=== PATIENT | male | born 1965 | race Two or more races ===

== ENCOUNTER 2019-09-14 06:58 | Emergency (ER) | payer BC ==
[~2019-09-14] VITALS: Ht 182.9 cm; Wt 99.8 kg
[2019-09-14 07:09] VITALS: BP 136/91
[2019-09-14] MEDS ORDERED: Cyclobenzaprine 10mg Tab ORAL ONE (07:15)
--- NOTE | 2019-09-14 07:15 | NUR ---
ED Nurse Note: Patient walked into ED from work, patient reports he leaned forward to "unlock something from home and hurt his lower back" this morning. patient is alert awake x4 ambulatory, breathing unlabored and even, speaking in full sentences.
[2019-09-14] MEDS ORDERED: Ketorolac 60mg Inj IM ONE (07:30)
--- NOTE | 2019-09-14 07:32 | NUR ---
ED Nurse Note: patient is provided with hospital gown but declined the gown. patient is taken for the xray.
--- NOTE | 2019-09-14 07:33 | Emergency Room Report ---
History of Present Illness General Chief Complaint: Lower Back Pain or Injury Source: Patient Present Illness HPI 53-year-old male with no medical problems, no surgical history, no history of drug or tobacco use, reports low back pain, sharp, nonradiating, moderate to severe intensity, worse when he is in the seated position, improves with walking around and standing upright, that started when he leaned down to unlock his gate at home. Patient denies any bowel bladder incontinence, any numbness, tingling, weakness, falls, recent weight loss, fevers chills, any other complaints, and reports his had pain like this but it was many years ago. He has not taken any medications for his symptoms. Allergies: Coded Allergies: No Known Allergies (Unverified , 09/14/19) Patient History Past Medical History: see triage record Reviewed Nursing Documentation: PMH: Agreed; PSxH: Agreed Nursing Documentation-PMH Past Medical History: No Stated History Review of Systems All Other Systems: negative except mentioned in HPI Physical Exam Vital Signs Date Time Temp Pulse Resp B/P (MAP) Pulse Ox O2 Delivery O2 Flow Rate FiO2 09/14/19 07:09 98.8 100 22 136/91 (106) 98 Room Air Sp02 EP Interpretation: reviewed, normal General Appearance: no apparent distress, alert, non-toxic Head: normocephalic Eyes: bilateral eye normal inspection, bilateral eye PERRL, bilateral eye EOMI ENT: normal ENT inspection, hearing grossly normal, normal pharynx, no angioedema, normal voice, moist mucus membranes Neck: normal inspection, full range of motion, supple, supple/symm/no masses Respiratory: chest non-tender, lungs clear, normal breath sounds, chest symmetrical, palpation of chest normal Cardiovascular #1: normal peripheral pulses, regular rate, rhythm Cardiovascular #2: 2+ radial (R), 2+ radial (L), 2+ dorsalis pedis (R), 2+ dorsalis pedis (L) Gastrointestinal: normal inspection, non tender, soft, no mass, no guarding, no rebound Rectal: deferred Genitourinary: normal inspection, no CVA tenderness Musculoskeletal: normal inspection, back normal, digits/nails normal, gait/ station normal, normal range of motion, non-tender, no calf tenderness Neurologic: alert, responsive, coil placer III-XII nml as tested, motor strength/tone normal, DTRs symmetric, SLR negative, sensory intact, normal gait, speech normal Psychiatric: judgement/insight normal, memory normal, mood/affect normal Reflexes: 2+ knee (R), 2+ knee (L) Lymphatic: no adenopathy Medical Decision Making Diagnostic Impression: Primary Impression: Low back pain ER Course Patient with normal examination, including neuro exam, patellar tendon reflexes , refuses muscle relaxants here because he wants to be able to drive home. Also refused a lumbar spine x-ray because he is not sure that is necessary, and he says he has an appointment with his doctor on the 12th of this month, which is 6 days from now. Patient reports he would like a prescription for muscle relaxants that he can fill if necessary, and wants to have today, , and Thursday off of work. I explained to him that his pain may last beyond that, but he just wants to have the rest of the week off, not 2 weeks. I offered today and tomorrow off, and he complained about not getting the manger of the entire week off. Also offered to write a work note that states he should have light duty with no lifting, and that he should be allowed to stand and move around regularly if sitting for prolonged periods aggravates his pain. Patient seemed adamant that he wanted today, tom, and Thursday off. Refused any other work- up or therapy other than receiving a Toradol shot. Last Vital Signs Date Time Temp Pulse Resp B/P (MAP) Pulse Ox O2 Delivery O2 Flow Rate FiO2 09/14/19 07:09 98.8 100 22 136/91 (106) 98 Room Air Disposition: HOME, SELF-CARE Condition: Stable Scripts No Active Prescriptions or Reported Meds ARIANNA SIMMONS M.D Sep 14, 2019 07:33
--- NOTE | 2019-09-14 07:40 | NUR ---
ED Nurse Note: patient refused IM toradol. Dr. Willis notified.
[2019-09-14] MEDS ORDERED: IBUPROFEN600 MG ORAL (07:44)
[2019-09-14] MEDS ORDERED: CYCLOBENZAPRINE10 MG ORAL (07:44)
[2019-09-14 07:58] VITALS: BP 136/91
--- NOTE | 2019-09-14 07:58 | NUR ---
ER DISCHARGE NOTE: Patient is cleared to be discharged per ERMD DR SIMMONS, pt is aox4, on room air, with stable vital signs. pt was given dc and prescription instructions, pt was able to verbalize understanding, pt id band removed without complications. pt is able to ambulate with steady gait. pt took all belongings.
== END 2019-09-14 07:58 | disposition home or self-care (01) ==
LOC: EMR 07:40 → EEVIPCON 07:40 → EMR 07:58
DX: M54.5 Low back pain (principal)
CPT/HCPCS: 99282

== ENCOUNTER 2020-11-03 14:59 | Inpatient (IN) | payer BC ==
[2020-11-03] VITALS (8 sets, daily range): BP systolic 118–129; BP diastolic 75–83
[~2020-11-03] VITALS: Ht 182.9 cm; Wt 106.6 kg
[~2020-11-03 14:59] MED LIST: CYCLOBENZAPRINE10 MG ORAL; IBUPROFEN600 MG ORAL
--- NOTE | 2020-11-03 15:10 | Emergency Room Report ---
History of Present Illness General Chief Complaint: Upper Extremity Injury Source: Patient Present Illness HPI 55-year-old [id number] male sent by orthopedic surgeon Dr. Reeys for open right distal radius fracture. Patient states that he sustained the injury yesterday after falling from a 6 foot ladder while painting his house. He initially presented to [facility] who wanted to admit him for orthopedic surgery, however he came to [place] because his doctor was here. Patient has been n.p.o. since yesterday. He denies any head trauma, loss of consciousness, neck pain, back pain, chest pain, abdominal pain and states that he is primarily having pain at his right wrist. Does not have any axial skeleton pain or any prodromal symptoms of syncope. He is currently in a splint from the outside facility. He denies numbness, tingling, paresthesia, paralysis, or other complications. He is right-hand d ominant. 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 The patient's symptoms were gradual onset, severity was moderate, duration since 2 days. Quality: Aching Past medical history: Type 2 diabetes Past surgical history: Denies Smoking: Previous Alcohol use: Previous Drug use: Denies Review of systems: CONST: No fevers or chills, No night sweats PULMONARY: No productive cough, No shortness of breath CARDIAC: No chest pain, No palpitations GI: No vomiting, No diarrhea , No melena_or_BRBPR : No dysuria, No hematuria, No discharge NEURO: No new_focal_weakness_or_numbness, No confusion, No vision changes 14 point Review of Systems is otherwise negative except per HPI Physical Exam: GENERAL: Awake_alert_ nontoxic, no acute distress Spo2 97% on RA -normal EYES: Extraocular muscles are intact. Conjunctivae clear. Lids without swelling ENT: External nose and ear normal_in_appearance. Oropharynx clear. Head_atraumatic, Moist_oral_mucosa NECK: No JVD. No meningismus. No thyromegaly. Supple. Trachea midline RESP: Normal respiratory effort. Symmetric rise. No stridor. Clear_to_auscultation_No_rales_No_wheezes CARDIAC: Tachycardic and regular rhytm. No_significant pedal edema. ABDOMEN: Soft. Nondistended. Nontender_No_rebound_or_guarding. MSK: Normal muscle tone, without rigidity. Extremities without asymmetric deformity or swelling. Upper extremity exam: RIGHT UE Elbow: No swelling / effusion appreciated, no significant pain with passive range of motion Wrist: ++Open fx with volar displacement; Dorsal laceration Lateral epicondyle: no tenderness / swelling / ecchymoses Medial epicondyle: no tenderness / swelling / ecchymoses Radial pulse: 2+ Capillary refill: <3 seconds in all fingers All fingers: full range of motion without any tenderness / swelling / deformity / evidence of infection Scaphoid: no tenderness / swelling / ecchymoses, no pain with axial loading of the thumb Radian / Median / Ulnar nerves: all intact (finger opposition, finger adduction / abduction, thumb dorsiflexion) Sensation intact to light touch: in all fingers Strength 5/5 with: wrist dorsi / volar flexion, 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 No visible cyanosis or pallor NEUROLOGIC: Alert, oriented x3. Motor_and_sensation_grossly_intact. No truncal ataxia. Gait_normal Psych: Normal mood and affect, normal judgment and insight - COORDINATION OF CARE Case was discussed with: Patient , Patient's Physician Any labs and imaging that were ordered were interpreted as part of the medical decision making: I reviewed patient's medical records from [facility]. He brought his diagnostic imaging report which was a 3 view x-ray of the right hand. It showed a Frykman classification type VIII acute comminuted intra-articular distal radial and ulnar fracture. 8 mm posterior displacement of the distal radial fracture also present. Medical Decision Making/Plan: Differential diagnosis includes musculoskeletal pain, fracture, dislocation, compartment syndrome, arterial occlusion, nerve damage, among others. Patient presents here with known open distal radius and ulnar fracture with displacement. He is neuro intact. Denies prodromal symptoms or syncope, or long-lasting headache, vision changes, weakness, axial skeleton pain, or difficulty walking. He is currently immobilized in a splint from the outside hospital. Per orthopedic surgeon, Dr. Rios, will get repeat x-rays for the RUE. Dr Rios states to keep splint on to immobilize the extremity and not to remove it at this time. He will take the open fx to OR for washout and repair. Dr Rios is requesting pre-op labs, COVID check and admission for operative repair. ED intervention included Ancef, Tdap, and morphine for pain control. Patient also received Ancef 1 g yesterday at [facility]. Distally the patient has capillary refill <2 seconds and strong pulses. There is no pallor or pain out of proportion to exam. No evidence of arterial occlusion or injury. No evidence at this time of major ligamentous disruption. I spoke with Dr. Rios and Dr Rodriguez, and reviewed the patients presentation, workup, results, and treatment. They will admit the patient for further care and evaluation, and assume care of the patient at this time. 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 Results Rhythm Strip Time: 15:26 EP Interpretation: yes Rate: 100 Rhythm: NSR, no PVC's, no ectopy PA Scribe Text Right wrist X-ray: Views: 3 view(s) Comminuted intra-articular distal radius and ulnar fracture. Mild displacement. Soft tissue swelling. Indication: Pain Impression: Comminuted intra-articular distal radius and ulnar fracture. Mild displacement. Soft tissue swelling. The X-ray(s) were independently viewed and interpreted contemporaneously - Electronically signed by Jaja baxter DO Right hand X-ray: Views: 2 view(s) Comminuted intra-articular distal radius and ulnar fracture. Mild displacement. Soft tissue swelling. Indication: Pain Impression: Comminuted intra-articular distal radius and ulnar fracture. Mild displacement. Soft tissue swelling. The X-ray(s) were independently viewed and interpreted contemporaneously - Electronically signed by Jaja baxter DO Right forearm X-ray: Views: 2 view(s) Comminuted intra-articular distal radius and ulnar fracture. Mild displacement. Soft tissue swelling. Indication: Pain Impression: Comminuted intra-articular distal radius and ulnar fracture. Mild displacement. Soft tissue swelling. The X-ray(s) were independently viewed and interpreted contemporaneously - Electronically signed by Jaja baxter DO Reevaluation Time: 15:26 Last Vital Signs Date Time Temp Pulse Resp B/P (MAP) Pulse Ox O2 Delivery O2 Flow Rate FiO2 11/03/20 15:02 99.0 117 19 123/80 (94) 98 Room Air Status: improved Disposition: ADMITTED INPATIENT Admit Decision Time: 15:26 Condition: Stable Jaja Hamilton D.O. Nov 03, 2020 15:10
[2020-11-03] MEDS ORDERED: ceFAZolin 2gm/50ml Premix 50 ML IV SCH (15:15)
[2020-11-03] MEDS ORDERED: Morphine Sulfate 4mg/ml Inj (IV USE ONLY) IVP ONE ×2 (15:15→18:15)
[2020-11-03] MEDS: Tetanus/Diptheria/Pertussis IM ONE ×2 (15:17→15:43)
[2020-11-03] MEDS ORDERED: NARCAN4 MG NS (15:34)
[2020-11-03] MEDS ORDERED: NORCO 5-325 TA1 EAC1 ORAL (15:34)
[2020-11-03] MEDS ORDERED: CEPHALEXIN500 MG ORAL (15:34)
[2020-11-03] MEDS ORDERED: NAPROXEN500 M1 ORAL (15:34)
[2020-11-03 15:57] LABS: ANION GAP 10 mmol/L (5-15); BLOOD UREA NITROGEN 16 mg/dL (7-18); CALCIUM 8.5 MG/DL (8.5-10.1); CARBON DIOXIDE 24 MMOL/L (21-32); CHLORIDE 106 MMOL/L (98-107); CREATININE 0.9 MG/DL (0.55-1.30); POTASSIUM 3.8 MMOL/L (3.5-5.1); SODIUM 140 MMOL/L (136-145)
[2020-11-03 16:08] LABS: ALANINE AMINOTRANSFERASE 39 U/L (12-78); ALBUMIN 4.1 G/DL (3.4-5.0); ALBUMIN/GLOBULIN RATIO 1.2 (1.0-2.7); ALKALINE PHOSPHATASE 64 U/L (46-116); ASPARTATE AMINO TRANSFERASE 33 U/L (15-37); BILIRUBIN,TOTAL 1.2 MG/DL (0.2-1.0)
[2020-11-03 16:28] LABS: BASOPHILS % (AUTO) 0.9 % (0.0-2.0); EOSINOPHILS % (AUTO) 0.2 % (0.0-3.0); HEMATOCRIT 42.5 % (42.0-52.0); HEMOGLOBIN 15.2 G/DL (14.2-18.0); LYMPHOCYTES % (AUTO) 17.7 % (20.0-45.0); MEAN CORPUSCULAR VOLUME 89 FL (80-99); NEUTROPHILS % (AUTO) 71.3 % (45.0-75.0); PLATELET COUNT 185 K/UL (150-450); RED BLOOD COUNT 4.77 M/UL (4.70-6.10); RED CELL DISTRIBUTION WIDTH 12.8 % (11.6-14.8); WHITE BLOOD COUNT 14.1 K/UL (4.8-10.8)
--- NOTE | 2020-11-03 16:41 | Diagnostic Imaging Report ---
EXAM: XR Right Wrist, 2 Views CLINICAL HISTORY: PAIN TECHNIQUE: Frontal and lateral views of the right wrist. COMPARISON: None FINDINGS: Bones/joints: Comminuted, displaced fractures of the distal right radius with mild dorsal angulation. Comminuted, mildly displaced fractures of the distal right ulna. Cast material limits evaluation of fine bony detail. No dislocation. Soft tissues: Soft tissue swelling. No radiopaque foreign body. IMPRESSION: 1. Comminuted, displaced fractures of the distal right radius with mild dorsal angulation. 2. Comminuted, mildly displaced fractures of the distal right ulna.
--- NOTE | 2020-11-03 16:42 | Diagnostic Imaging Report ---
EXAM: XR Right Forearm, 2 Views CLINICAL HISTORY: PAIN TECHNIQUE: Frontal and lateral views of the right forearm. COMPARISON: None FINDINGS: Bones/joints: Comminuted, displaced fractures of the distal right radius and ulna. Cast material limits evaluation of fine bony detail. No dislocation. Soft tissues: Soft tissue swelling. IMPRESSION: Comminuted, displaced fractures of the distal right radius and ulna.
--- NOTE | 2020-11-03 16:45 | Diagnostic Imaging Report ---
EXAM: XR Right Hand Complete, 3 or More Views CLINICAL HISTORY: PAIN TECHNIQUE: Frontal, lateral and oblique views of the right hand. COMPARISON: None FINDINGS: Bones/joints: Comminuted, mildly displaced fractures of the distal right radius and ulna. Mild dorsal angulation of the distal radius fracture fragments. Cast material limits evaluation of fine bony detail. No dislocation. Soft tissues: Soft tissue swelling. No radiopaque foreign body. IMPRESSION: Comminuted, mildly displaced fractures of the distal right radius and ulna. Mild dorsal angulation of the distal radius fracture fragments.
[2020-11-03 16:50] LABS: BILIRUBIN,DIRECT 0.2 MG/DL (0.0-0.3)
[2020-11-03] MEDS ORDERED: Bupivacaine 0.25% Inj 30ml INJ ONE (18:57)
[2020-11-03] MEDS ORDERED: Lidocaine 1%/ 10mg/ml/EPI 0.01mg/ml 20ml INJ ONE (18:57)
[2020-11-03] MEDS ORDERED: Bacitracin 50000 Units Vial ONE (18:58)
[2020-11-03] MEDS ORDERED: Succinylcholine 20mg/ml 10ml vial ONE (18:58)
[2020-11-03] MEDS ORDERED: Rocuronium Bromide 50mg/5ml Inj IV ONE (18:58)
[2020-11-03] MEDS ORDERED: Lidocaine 1% MPF 10mg/ml 5ml ONE (19:13)
[2020-11-03] MEDS ORDERED: fentaNYL 100 mcg/2 mL IV ONE (19:13)
[2020-11-03] MEDS ORDERED: Midazolam 2mg/2ml Inj ONE (19:13)
[2020-11-03] MEDS ORDERED: Ropivacaine 5mg/ml Vial 30ml INJ ONE (19:22)
--- NOTE | 2020-11-03 19:47 | Pre-Procedure Note/Attestation ---
Pre-Procedure Note/Attestation Complete Prior to Procedure Planned Procedure: right Procedure Narrative: open distal radius and ulna fracture orif with possible application external fixator Indications for Procedure Pre-Operative Diagnosis: right open distal radius fx/ulna fx Attestation I attest that I discussed the nature of the procedure; its benefits; risks and complications; and alternatives (and the risks and benefits of such alternatives), prior to the procedure, with the patient (or the patient's legal entry level account representative). I attest that, if there was a reasonable possibility of needing a blood transfusion, the patient (or the patient's legal entry level account representative) was given the [facility] standardized written summary, pursuant to the Alejo Evarts Blood Safety Act ([place] Health and Safety Code # 1645, as amended). I attest that I re-evaluated the patient just prior to the surgery and that there has been no change in the patient's H&P, except as documented below: Wilmar Reyes MD Nov 03, 2020 19:47
--- NOTE | 2020-11-03 19:47 | Operative Note - PDOC ---
Operative Note Operative Note Pre-op Diagnosis: right open distal radius fx/ulna fx Procedure: see op report Post-op Diagnosis: same as pre-op plus Operative Findings: consistent w/pre-op dx studies Anesthesia: regional Specimen: none Complications: none Condition: stable Estimated Blood Loss: none Drains: none Implant(s) used?: Yes Wilmar Reyes MD Nov 03, 2020 19:47
[2020-11-03] MEDS ORDERED: Sterile Water Irrig 1000ml IRRIG ONE (20:00)
[2020-11-03] MEDS ORDERED: HYDROmorphone 1mg/ml Carpuject SUBQ PRN (20:00)
[2020-11-03] MEDS ORDERED: NS Irrig 1000ml ONE (20:00)
[2020-11-03] MEDS ORDERED: Hydromorphone 0.5mg/0.5ml inj SUBQ PRN (20:00)
[2020-11-03] MEDS ORDERED: LR 1000ml ONE (20:00)
--- NOTE | 2020-11-03 20:34 | Anethesia Preoperative Eval ---
Anesthesia Pre-op PMH/ROS General Date of Evaluation: Nov 03, 2020 Time of Evaluation: 19:15 Anesthesiologist: Mary ASA Score: ASA 2 Mallampati Score Class I : Soft palate, uvula, fauces, pillars visible Class II: Soft palate, uvula, fauces visible Class III: Soft palate, base of uvula visible Class IV: Only hard plate visible Mallampati Classification: Class II Surgeon: Eric Diagnosis: R distal forearm Fx Surgical Procedure: ORIF of R forearm Fx. Anesthesia History: none Family History: no anesthesia problems Allergies: Coded Allergies: No Known Allergies (Unverified , 09/14/19) Medications: see eMAR Patient NPO?: Yes Past Medical History Cardiovascular: Denies: HTN, CAD, OR, valve dz, arrhythmia, other Pulmonary: Denies: asthma, COPD, SHAUNA, other Gastrointestinal/Genitourinary: Reports: GERD - mild; Denies: CRI, ESRD, other Neurologic/Psychiatric: Denies: dementia, CVA, depression/anxiety, TIA, other Endocrine: Reports: DM - stable on pils; Denies: hypothyroidism, steroids, other HEENT: Denies: cataract (L), cataract (R), glaucoma, [place] (L), [place] (R), other Hematology/Immune: Denies: anemia, DVT, bleeding disorder, other Musculoskeletal/Integumentary: Denies: OA, RA, DJD, DDD, edema, other PMH Narrative: as above admitted for acute open forearm Fx as a result of mechanical fall PSxH Narrative: None Anesthesia Pre-op Phys. Exam Physician Exam Last Vital Signs Date Time Temp Pulse Resp B/P (MAP) Pulse Ox O2 Delivery O2 Flow Rate FiO2 11/03/20 19:20 98.8 88 18 125/82 98 Room Air Constitutional: NAD Neurologic: CN 2-12 intact Cardiovascular: RRR, no M/R/G Respiratory: CTA Gastrointestinal: S/NT/ND Airway Exam Mallampati Score: Class II MO: full Neck: flexible ROM: full Teeth: intact Dentures: no upper, no lower Anesthesia Pre-op A/P Labs Hematology Test 11/03/20 15:15 White Blood Count 14.1 K/UL (4.8-10.8) H Red Blood Count 4.77 M/UL (4.70-6.10) Hemoglobin 15.2 G/DL (14.2-18.0) Hematocrit 42.5 % (42.0-52.0) Mean Corpuscular Volume 89 FL (80-99) Mean Corpuscular Hemoglobin 31.9 PG (27.0-31.0) H Mean Corpuscular Hemoglobin Concent 35.8 G/DL (32.0-36.0) Red Cell Distribution Width 12.8 % (11.6-14.8) Platelet Count 185 K/UL (150-450) Mean Platelet Volume 9.4 FL (6.5-10.1) Neutrophils (%) (Auto) 71.3 % (45.0-75.0) Lymphocytes (%) (Auto) 17.7 % (20.0-45.0) L Monocytes (%) (Auto) 10.0 % (1.0-10.0) Eosinophils (%) (Auto) 0.2 % (0.0-3.0) Basophils (%) (Auto) 0.9 % (0.0-2.0) Coagulation Test 11/03/20 15:15 Prothrombin Time 11.3 SEC (9.30-11.50) Prothromb Time International Ratio 1.0 (0.9-1.1) Chemistry Test 11/03/20 15:15 Sodium Level 140 MMOL/L (136-145) Potassium Level 3.8 MMOL/L (3.5-5.1) Chloride Level 106 MMOL/L (98-107) Carbon Dioxide Level 24 MMOL/L (21-32) Anion Gap 10 mmol/L (5-15) Blood Urea Nitrogen 16 mg/dL (7-18) Creatinine 0.9 MG/DL (0.55-1.30) Estimat Glomerular Filtration Rate > 60 mL/min (>60) Glucose Level 147 MG/DL (74-106) H Calcium Level 8.5 MG/DL (8.5-10.1) Total Bilirubin 1.2 MG/DL (0.2-1.0) H Direct Bilirubin 0.2 MG/DL (0.0-0.3) Aspartate Amino Transf (AST/SGOT) 33 U/L (15-37) Alanine Aminotransferase (ALT/SGPT) 39 U/L (12-78) Alkaline Phosphatase 64 U/L (46-116) Total Protein 7.4 G/DL (6.4-8.2) Albumin 4.1 G/DL (3.4-5.0) Globulin 3.3 g/dL Albumin/Globulin Ratio 1.2 (1.0-2.7) Studies Pre-op Studies: EKG - SR Risk Assessment & Plan Assessment: ASA 2 Plan: GA with LMA R axillary block for postop pain control Status Change Before Surgery: No Pre-Antibiotics Drug: Ancef 2gr. Given Within 1 Hr of Incision: Yes Time Given: 20:10 Esteban Hernandez MD Nov 03, 2020 20:34
[2020-11-03] MEDS ORDERED: DiphenhydrAMINE 50mg/ml Inj IVP PRN (20:45)
[2020-11-03] MEDS ORDERED: LR 1000ml 1,000 ML IVLG SCH (20:45)
[2020-11-03] MEDS ORDERED: Ketorolac 30mg Inj IV PRN (20:45)
[2020-11-03] MEDS ORDERED: Acetaminophen (Non formulary) 100 ML IV ONE (20:45)
[2020-11-03] MEDS ORDERED: Meperidine 25mg/1ml Inj (FOR RIGORS ONLY) IV PRN (20:45)
[2020-11-03] MEDS ORDERED: Ketorolac 30mg Inj ONE (21:11)
--- NOTE | 2020-11-03 21:51 | Immediate Post-Op Evaluation ---
Immediate Post-Op Evalulation Immediate Post-Op Evalulation Procedure: ORIF of R distal radius Fx. Date of Evaluation: Nov 03, 2020 Time of Evaluation: 21:50 IV Fluids: 1000 Blood Products: none Estimated Blood Loss: <50 Urinary Output: none Blood Pressure Systolic: 127 Blood Pressure Diastolic: 81 Pulse Rate: 86 Respiratory Rate: 22 O2 Sat by Pulse Oximetry: 99 Temperature (Fahrenheit): 98.6 Pain Score (1-10): 3 Nausea: No Vomiting: No Complications none Patient Status: reacts, patent, none Hydration Status: adequate Esteban Hernandez MD Nov 03, 2020 21:51
--- NOTE | 2020-11-03 22:45 | Consultation ---
DATE OF CONSULTATION: 11/03/2020 CONSULTING PHYSICIAN: Wilmar Reyes MD HISTORY OF PRESENT ILLNESS: The patient is a right-hand dominant 55-year-old gentleman, who sustained a mechanical fall. He was seen at [facility], was diagnosed with open fracture, subsequently was there for 20 hours without an orthopedic evaluation. The patient subsequently signed out AMA, presented to [facility] for further care and recommendations. Orthopedic consult was obtained. PAST MEDICAL HISTORY: Reviewed per intake chart. SURGICAL HISTORY: Reviewed per intake chart. MEDICATIONS: Reviewed per intake chart. PHYSICAL EXAMINATION: Right arm is in a posterior splint, but he has moderate pain. Neurovascular normal. Difficult to perform. DIAGNOSTIC DATA: Imaging study showed comminuted distal radius and ulna fracture, extension in distal third radial shaft, displacement of the carpus dorsally. ASSESSMENT: Right intra-articular grade 1 open distal radius and ulna fracture. DISCUSSION: At this point, given the concern of open injury, we are going to proceed with open reduction and internal fixation. I discussed with the patient that it was a pretty complicated fracture. Even though everything comes out perfectly, he may have some residual issues including pain, loss of motion, function, etc. At this point, options are limited given that it is an open injury, we are going to proceed with surgery. I discussed with him he may have application of external fixator with volar plating based on intraoperative findings. Risks, limitations, expectations, and complications of procedure were discussed in detail including also need for future surgeries removal of the external fixation and plate to bone grafting of the fracture to removal of the external fixator. All questions addressed. At this point, we will proceed with surgery. He will be made NPO in anticipation of surgery. He is provided the Ancef IV. Wilmar Reyes M.D. DR: ADRIANA JOB#: [id number] CC: [email or web address]
[2020-11-04] VITALS: BP 113/77
[2020-11-04] MEDS: ceFAZolin sod 1 GM in D5W 55 ML IV SCH ×2 (00:45→08:49)
--- NOTE | 2020-11-04 00:45 | Operative Note - Dictated ---
DATE OF OPERATION: 11/03/2020 POSTOPERATIVE DIAGNOSIS: Right grade 1 open comminuted distal radius and ulna fracture. POSTOPERATIVE DIAGNOSIS: Right grade 1 open comminuted distal radius and ulna fracture. PROCEDURES: 1. Open reduction and internal fixation, right base distal radius fracture (more than 3 pieces intra-articular/displaced). 2. Closed reduction, right distal ulna fracture. 3. Irrigation and debridement of grade 1 open fracture. 4. Decompression fasciotomy, right forearm. SURGEON: Wilmar Reyes M.D. ANESTHESIA: Axillary with general. INDICATION FOR PROCEDURE: The patient is a pleasant gentleman, who had a significant injury to the right distal radius. He was diagnosed with a grade 1 open comminuted displaced distal radius ulnar fracture. Risks, limitations, expectations, complication, risk of procedure discussed in detail. All questions were addressed including need for future surgery, loss of reduction, issues with the implants, chance of infection, nerve vessel damage, etc. All questions were addressed. Risks, limitations, expectations, and complications of the procedures were discussed in detail. All questions were addressed. DESCRIPTION OF PROCEDURE: After informed consent was obtained, the patient was brought into operating room and placed under axillary and general anesthesia. Right wrist was prepped and draped in a sterile manner. Time-out was performed. At this point, there was less than 1 cm opening along the distal ulna kind of consistent with a grade 1 inside-out open injury. This is the area where there was comminution across the fracture site. This was away from planned volar incision. We had also prepared in anticipation of possible applying external fixator as well the surgery would progress. It was felt initially to approach the distal radius. Therefore, volar approach to the distal radius and forearm using a traditional [place]el[place] approach was performed. There was significant edema along the flexor muscle mass. Therefore, a fascial release was extended proximally and distally. Once the volar surface of distal radius was identified, the pronator quadratus was identified and incised on the radial border. At this point, the comminuted displaced distal radius fracture was reduced. Multiple attempts were made to try to get adequate reduction using multiple clamps as well as the plate and K-wire fixation. Once adequate reduction was performed, K-wire as well as a volar plate was selected and placed. 2 distal and 2 proximal screws were then placed. At this point, given the nature of the comminution along the distal radius felt that joint space is as anatomically aligned as possible. Therefore, additional distal fixation and proximal fixation was performed. There was a split that extended along the radial shaft, which was relatively nondisplaced, but this was bypassed using the 7-hole [place] volar plate. Once all the screws were placed, wrist was taken through range of motion and seemed to be relatively stable with no catching or locking, flexion and extension. DRUJ joint was relatively stable with the hand in neutral. Once this was done, the wound was copiously irrigated with bacitracin-containing irrigation. Inside-out incision was extended, any nonviable tissue was debrided, and he was irrigated. At this point, given the dense nature of the flexor muscle, subcutaneous tissue was only proximally using 3-0 Vicryl sutures. The skin was closed using 3-0 Monocryl suture. Dermabond dressing was applied. Prior to closure, 2 g of vancomycin was placed in the subcutaneous tissues. At this point, posterior splint was applied. Forearm rotation was nice and stable. The patient was awoken and taken to recovery room with stable vital signs. ESTIMATED BLOOD LOSS: Minimal. COMPLICATIONS: None. SPECIMENS: None. IMPLANTS: Include a [place] volar plate 7 hole. Of note, thought that the fixation had very good purchase and additional fixation. External fixator was not necessary particularly given risk of infection. It was felt that volar plate fixation was more than adequate. Wilmar Reyes M.D. DR: LAI JOB#: [id number] CC: LISSETTE
[2020-11-04 04:00] VITALS: BP 115/70
[2020-11-04 08:00] VITALS: BP 131/83
[2020-11-04] MEDS ORDERED: oxyCONTIN 20mg tab ORAL SCH (09:00)
[2020-11-04] MEDS ORDERED: celeBREX 200mg Cap **SURGERY PATIENTS ONLY ORAL SCH (09:00)
[2020-11-04] MEDS ORDERED: Docusate 100mg cap ORAL SCH (09:00)
[2020-11-04] MEDS ORDERED: CEPHALEXIN500 MG ORAL (09:17)
[2020-11-04] MEDS ORDERED: JANUMET 50-1,01 EACH ORAL (09:17)
[2020-11-04] MEDS ORDERED: NORCO 5-325 TA1 EAC1 ORAL (09:17)
--- NOTE | 2020-11-04 09:59 | History and Physical Report ---
DATE OF ADMISSION: 11/03/2020 HISTORY OF PRESENT ILLNESS: This is a 55-year-old male who has undergone ORIF distal right radius fracture overnight. The patient had fallen from a 6 foot ladder while painting his home. He went to [facility]; however, after many hours he left AMA and presented to [facility]. His surgery was successful this morning. He states he is feeling better. He denies any new complaints. The patient underwent ORIF of the distal radius fracture as well as irrigation and debridement of grade 1 open fracture, decompression fasciotomy, right forearm and closed reduction of right distal ulna fracture. PAST MEDICAL HISTORY: Notable for diabetes mellitus. HOME MEDICATIONS: Janumet. ALLERGIES: None. PAST SURGICAL HISTORY: None. SOCIAL HISTORY: Denies alcohol or tobacco use. Lives at home with family. He works at [employer]. PHYSICAL EXAMINATION: GENERAL: This is a 55-year-old male. VITAL SIGNS: Blood pressure 130/80, heart rate 95, respiratory rate 18, O2 saturation 95% on room air. He is afebrile. HEENT: Unremarkable. CHEST: Clear breath sounds bilaterally. ABDOMEN: Soft. EXTREMITIES: There is no edema. His right arm is in a cast. His distal fingertips are pink and perfusing well. He is able to move them without difficulty NEUROLOGIC: Nonfocal. LABORATORY AND DIAGNOSTIC DATA: Laboratory testing shows white count 14,000, otherwise normal CBC and BMP. Glucose 147, bilirubin 1.2. Coags are negative. IMPRESSION: 1. Status post ORIF and fasciotomy, right forearm. 2. Diabetes mellitus. DISCUSSION: Doing well postop day#1. I will discharge home today. Outpatient follow up with Dr. Reyes. We will initiate Keflex. Continue pain medications. Continue Janumet. Laith Rodriguez M.D. DR: Beatrice JOB#: [id number] CC:
[2020-11-04] MEDS ORDERED: D5W 275ml ONE (13:19)
[2020-11-04] MEDS ORDERED: Tubing IV Secondary IV ONE (13:19)
--- NOTE | 2020-11-05 07:49 | Diagnostic Imaging Report ---
EXAM: XR Right Wrist, 2 Views CLINICAL HISTORY: FX TECHNIQUE: Frontal and lateral views of the right wrist. COMPARISON: No relevant prior studies available. FINDINGS: Bones/joints: 2 fluoroscopy images demonstrate distal radius and ulnar fractures. There are post surgical changes from internal fixation of the distal radial fracture. There is relative anatomic alignment. Soft tissues: Unremarkable. No radiopaque foreign body. IMPRESSION: Post internal fixation distal radial fracture with relative anatomic alignment.
--- NOTE | 2020-11-05 13:18 | Discharge Summary ---
Discharge Summary Discharge Summary _ DATE OF ADMISSION: 11/03/2020 DATE OF DISCHARGE: 11/04/2020 DISCHARGED BY: Dr Rodriguez REASON FOR ADMISSION: 55 years old male with past medical history of diabetes mellitus, sustained a fall from a 6 foot ladder while painting his home and subsequently was found to have a distal right radius fracture. Patient presented to [facility] for elective surgery . CONSULTANTS: Orthopedic surgeon Dr. Reyes HOSPITAL COURSE: Patient undergone open reduction internal fixation right base distal radius fracture, closed reduction of right distal ulna fracture, irrigation and debridement of grade 1 open fracture, decompression fasciotomy, right forearm. Patient was observed overnight. Pain management was addressed as needed. Right arm was kept elevated at all times. Blood sugar was managed with sliding scale of insulin. Empiric antibiotic provided. Incentive spirometry was encouraged while in the bed. Bowel regimen instituted. Pain was controlled, patient able to tolerate diet, ambulated, voided without difficulty , and was ready for discharge home . Outpatient follow-up with a surgeon as advised. FINAL DIAGNOSES: Right grade 1 open comminuted distal radius and ulna fracture Status post open reduction internal fixation right base distal radius fracture, closed reduction of right distal ulna fracture, irrigation and debridement of grade 1 open fracture, decompression fasciotomy, right forearm Diabetes mellitus DISCHARGE MEDICATIONS: See Medication Reconciliation list. DISCHARGE INSTRUCTIONS: Patient was discharged home. Outpatient follow-up with a surgeon as advised. I have been assigned to dictate discharge summary for this account. I was not involved in the patient's management. Natasha Edmond NP Nov 05, 2020 13:18
[2020-11-06 08:33] VITALS: BP 136/72
--- NOTE | 2020-11-06 08:33 | 48 Hour Post Anesthesia Eval ---
Post Anesthesia Evaluation Procedure: ORIF of R distal radius Fx. Date of Evaluation: Nov 04, 2020 Time of Evaluation: 08:50 Blood Pressure Systolic: 136 0: 72 Pulse Rate: 74 Respiratory Rate: 20 Temperature (Fahrenheit): 97.6 O2 Sat by Pulse Oximetry: 98 Airway: patent Nausea: No Vomiting: No Pain Intensity: 2 Hydration Status: adequate Cardiopulmonary Status: stable Mental Status/LOC: patient returned to baseline Follow-up Care/Observations: n/a Post-Anesthesia Complications: none Follow-up care needed: ready to discharge Esteban Hernandez MD Nov 06, 2020 08:33
== END 2020-11-04 13:20 | disposition home or self-care (01) | DRG 502 ==
LOC: EMR 15:13 → EDBEDREQSVC 16:10 → EDBEDREQ 16:10 → SDSOVERFLO 18:05 → 3E 22:44
PROC: 0PSH04Z Reposition Right Radius with Internal Fixation Device, Open Approach (ICD-10-PCS; principal; 2020-11-03 19:30)
PROC: 0KN90ZZ Release Right Lower Arm and Wrist Muscle, Open Approach (ICD-10-PCS; principal; 2020-11-03 19:30)
PROC: 0PSKXZZ Reposition Right Ulna, External Approach (ICD-10-PCS; principal; 2020-11-03 19:30)
DX: S52.501B Unspecified fracture of the lower end of right radius, initial encounter for open fracture type I or II (principal); S52.601B Unspecified fracture of lower end of right ulna, initial encounter for open fracture type I or II; W17.89XA Other fall from one level to another, initial encounter; Y92.009 Unspecified place in unspecified non-institutional (private) residence as the place of occurrence of the external cause; E11.9 Type 2 diabetes mellitus without complications
CPT/HCPCS: 36415; 76000; 80053; 82248; 82962; 85025; 85610; 90471; 90715; 96374; 96375; 96376; 99285; J2180; J2250; J2405; U0002